=== PATIENT | male | born 2000 | race Caucasian/White ===

== ENCOUNTER 2019-08-24 13:01 | Emergency (ER) | payer OTHER ==
[~2019-08-24] VITALS: Ht 180.3 cm; Wt 78.6 kg
[2019-08-24 14:34] VITALS: BP 139/89; PULSE 66; TEMP 98.4
== END 2019-08-24 14:40 | disposition home or self-care (01) ==
LOC: COL.ER 13:01
DX: G56.91 Unspecified mononeuropathy of right upper limb (principal)